=== PATIENT | male | born 1975 | race Caucasian/White ===

== ENCOUNTER 2023-04-23 18:18 | Emergency (ER) | payer MEDICAID ==
[~2023-04-23] VITALS: Ht 175.3 cm; Wt 82.3 kg
[2023-04-23 18:28] VITALS: BP 124/85; O2SAT 100
[2023-04-23] MEDS ORDERED: TETANUS, DIPHTHERIA, PERTUSSIS VAC/PF 0.5ML (>10YR OLD) IM ONE (19:15)
[2023-04-23] MEDS ORDERED: AMOXICILLIN/POTASSIUM CLAVULANATE 875/125MG TAB PO ONE (19:15)
[2023-04-23] MEDS ORDERED: AMOX1TAB16 MT (20:33)
[2023-04-23 21:07] VITALS: PULSE 99; RESP 18; TEMP 98.7
== END 2023-04-23 21:07 | disposition home or self-care (01) ==
LOC: ER 18:18
DX: S61.451A Open bite of right hand, initial encounter (principal); E11.9 Type 2 diabetes mellitus without complications; W54.0XXA Bitten by dog, initial encounter; Y93.89 Activity, other specified; Y92.89 Other specified places as the place of occurrence of the external cause; Y99.8 Other external cause status
CPT/HCPCS: 73130; 90715; 90471; 99283; Z7610